=== PATIENT | male | born 1950 | race Caucasian/White ===

== ENCOUNTER 2018-05-30 05:25 | Day surgery (SDC) | payer MEDICARE, OTHER ==
[~2018-05-30 05:25] MED LIST: Acetaminophen 500 MG Tab PO ONE; Bupivacaine 0.5% 50 ML MDV ONE; Dextrose 5%-Lactated Ringers 1,000 ML IV SCH; Lidocaine 1% with EPINEPHrine 1:100,000 50 ML MDV ONE; ceFAZolin 2 GM in Premix Bag 1 BAG IV ONE
[2018-05-30] MEDS ORDERED: Acetaminophen 500 MG Tab PO ONE (06:00)
[2018-05-30] MEDS: Dextrose 5%-Lactated Ringers 1,000 ML IV SCH ×2 (06:32→14:42)
[2018-05-30] MEDS ORDERED: Lidocaine 1% with EPINEPHrine 1:100,000 50 ML MDV ONE (06:43)
[2018-05-30] MEDS ORDERED: Bupivacaine 0.5% 50 ML MDV ONE (06:43)
[2018-05-30] MEDS ORDERED: Bupivacaine 0.5%/EPINEPHrine 1:200,000 50 ML MDV ONE (07:10)
[2018-05-30] MEDS ORDERED: Propofol 200 MG/20 ML SDV ONE ×2 (07:14→10:50)
[2018-05-30] MEDS ORDERED: Neostigmine Methylsulfate 1 MG/ML 5 ML Syringe ONE (07:14)
[2018-05-30] MEDS ORDERED: Dexamethasone 4 MG/ML SDV ONE (07:14)
[2018-05-30] MEDS ORDERED: Rocuronium 50 MG/5 ML Vial ONE (07:14)
[2018-05-30] MEDS ORDERED: Glycopyrrolate 0.2 MG/ML 5 ML MDV ONE (07:14)
[2018-05-30] MEDS ORDERED: Ondansetron 4 MG/2 ML SDV ONE (07:14)
[2018-05-30] MEDS ORDERED: Succinylcholine 200 MG/10 ML MDV ONE (07:14)
[2018-05-30] MEDS ORDERED: fentaNYL 250 MCG/5 ML SDV ONE (07:15)
[2018-05-30] MEDS: ceFAZolin 2 GM in Premix Bag 1 BAG IV ONE ×2 (08:56→12:31)
[2018-05-30] MEDS ORDERED: Ketorolac 60 MG/2 ML SDV ONE (09:18)
[2018-05-30] MEDS ORDERED: Lactated Ringers 1,000 ML ONE (09:44)
[2018-05-30] MEDS ORDERED: fentaNYL 100 MCG/2 ML SDV ONE (09:58)
[2018-05-30] MEDS ORDERED: Ondansetron 4 MG/2 ML SDV IVPUSH PRN (11:56)
[2018-05-30] MEDS ORDERED: Acetaminophen/oxyCODONE 325-5 MG Tab PO PRN (11:57)
[2018-05-30] MEDS: ceFAZolin 2 GM in Premix Bag 1 BAG IV SCH (16:37)
[2018-05-30] MEDS ORDERED: Simvastatin 20 MG Tab PO SCH (21:00)
[2018-05-31] MEDS: ceFAZolin 2 GM in Premix Bag 1 BAG IV SCH (00:07)
[2018-05-31] MEDS ORDERED: Aspirin 81 MG Tab.EC PO SCH (09:00)
--- NOTE | 2018-05-31 16:55 | PCM.DCSUM1 ---
Discharge Summary - Hospital Course Free Text/Narrative:: Admission Diagnosis: Incarcerated inguinal hernia. Discharge Diagnosis: Incarcerated inguinal hernia. Brief History: Admission Diagnosis: Incarcerated inguinal hernia. Procedure: Open repair of incarcerated left inguinal hernia with mesh. Post Op Diagnosis: Incarcerated inguinal hernia. Post Op Day 1: Patient will be discharged today. The patient's pain is well controlled, is urinating, having bowel movements, and tolerating diet. No concerns from the patient or nursing staff. TORIBIO drains will stay in place until follow-up appointment with Tootie Bui PA-C on WednesdayJune 03 at 10:00 AM. Patient will drain these 4 times per day. The patient understands and agrees to plan of care. - Discharge Data Discharge Date: 05/31/18 Discharge Disposition: Home, Self-Care 01 Condition: Good - Patient Summary/Data Consults: Consultations 05/30/18 11:45 Respiratory Care Assess and Treatment [CONS] Routine Comment: Physician Instructions: - Patient Instructions Diet: Usual Diet as Tolerated, Drink 8-10+ Glasses/Day Activity: No Lifting Over 10 Pounds Activity, Other: Walk at least 6 times daily Driving: Do Not Drive Showering/Bathing: May Shower Wound/Incision Care: Keep Operative Site/Wound Site Clean and Dry Notify Provider of: Fever, Increased Pain, Nausea and/or Vomiting Other/Special Instructions: Use incentive inspirometer 10 times every hour while awake for 1 week. - Discharge Plan Prescriptions/Med Rec: Acetaminophen/oxyCODONE [Percocet 325-5 MG] 1 - 2 tab PO Q4H PRN #40 tablet PRN Reason: Pain Home Medications: Home Meds Aspirin [Adult Low Dose Aspirin EC] 81 mg PO DAILY 07/28/13 [History] Multivitamin with Minerals [Multiple Vitamin] 1 tab PO DAILY 07/28/13 [History] Simvastatin 20 mg PO DAILY 07/28/13 [History] Acetaminophen/oxyCODONE [Percocet 325-5 MG] 1 - 2 tab PO Q4H PRN #40 tablet 04/06 [Rx] Referrals: Tootie Bui PA-C [Physician Perfume Maker] - 06/03/18 10:00 am Bonilla Sung MD [Physician] - 06/08/18 8:00 am - Discharge Summary/Plan Comment DC Time >30 min.: Yes - General Info Date of Service: 05/31/18 Admission Dx/Problem (Free Text: Incarcerated inguinal hernia. Functional Status: Reports: Pain Controlled, Tolerating Diet, Ambulating, Urinating, Incentive Spirometry - Patient Data Vitals - Most Recent: Last Vital Signs Temp 37.0 C 05/31/18 07:13 Pulse 87 05/31/18 07:13 Resp 16 05/31/18 07:13 BP 143/81 H 05/31/18 07:13 Pulse Ox 93 L 05/31/18 07:18 Weight - Most Recent: 84.822 kg I&O - Last 24 hours: Intake & Output 05/31/18 05/31/18 05/31/18 06:59 14:59 22:59 Intake Total 750 Output Total 670 65 Balance 80 -65 Med Orders - Current: Current Medications Discontinued Medications Acetaminophen (Tylenol Extra Strength) 1,000 mg PO ONETIME ONE Stop: 05/16/18 07:46 Acetaminophen (Tylenol Extra Strength) 1,000 mg PO ONETIME ONE Stop: 05/26/18 05:46 Acetaminophen (Tylenol Extra Strength) 1,000 mg PO ONETIME ONE Stop: 05/30/18 06:01 Last Admin: 05/30/18 05:49 Dose: 1,000 mg Aspirin (Halfprin) 81 mg PO DAILY MONIE Bupivacaine HCl (Marcaine 0.5%) Confirm Administered Dose 50 ml .ROUTE .STK-MED ONE Stop: 05/16/18 06:43 Bupivacaine HCl (Marcaine 0.5%) Confirm Administered Dose 50 ml .ROUTE .STK-MED ONE Stop: 05/30/18 06:44 Bupivacaine HCl/Epinephrine Bitart (Marcaine 0.5%/Epinephrine 1:200,000) Confirm Administered Dose 50 ml .ROUTE .STK-MED ONE Stop: 05/30/18 07:11 Last Admin: 05/30/18 09:23 Dose: 25 ml Dexamethasone (Dexamethasone) Confirm Administered Dose 4 mg .ROUTE .STK-MED ONE Stop: 05/30/18 07:15 Fentanyl (Sublimaze) Confirm Administered Dose 250 mcg .ROUTE .STK-MED ONE Stop: 05/30/18 07:16 Fentanyl (Sublimaze) Confirm Administered Dose 100 mcg .ROUTE .STK-MED ONE Stop: 05/30/18 09:59 Glycopyrrolate (Robinul) Confirm Administered Dose 1 mg .ROUTE .STK-MED ONE Stop: 05/30/18 07:15 Cefazolin Sodium/Dextrose 2 gm (/ Premix) 50 mls @ 100 mls/hr IV ONETIME ONE Stop: 05/16/18 09:29 Dextrose/Lactated Ringer's (Dextrose 5%-Lactated Ringers) 1,000 mls @ 100 mls/ hr IV ASDIRECTED [facility] Dextrose/Lactated Ringer's (Dextrose 5%-Lactated Ringers) 1,000 mls @ 100 mls/ hr IV ASDIRECTED [facility] Cefazolin Sodium/Dextrose 2 gm (/ Premix) 50 mls @ 100 mls/hr IV ONETIME ONE Stop: 05/26/18 07:44 Dextrose/Lactated Ringer's (Dextrose 5%-Lactated Ringers) 1,000 mls @ 100 mls/ hr IV ASDIRECTED [facility] Last Admin: 05/30/18 14:42 Dose: 100 mls/hr Cefazolin Sodium/Dextrose 2 gm (/ Premix) 50 mls @ 100 mls/hr IV ONETIME ONE Stop: 05/30/18 06:29 Last Admin: 05/30/18 12:31 Dose: Not Given Lactated Ringer's (Ringers, Lactated) Confirm Administered Dose 1,000 mls @ as directed .ROUTE .STK-MED ONE Stop: 05/30/18 09:45 Linezolid (Zyvox) Confirm Administered Dose 300 mls @ as directed .ROUTE .STK- MED ONE Stop: 05/30/18 10:07 Cefazolin Sodium/Dextrose 2 gm (/ Premix) 50 mls @ 100 mls/hr IV Q8H [facility] Stop: 05/31/18 00:29 Last Admin: 05/31/18 00:07 Dose: 100 mls/hr Ketorolac Tromethamine (Toradol) Confirm Administered Dose 60 mg .ROUTE .STK- MED ONE Stop: 05/30/18 09:19 Lidocaine/Epinephrine (Xylocaine 1% With Epinephrine 1:100,000) Confirm Administered Dose 50 ml .ROUTE .STK-MED ONE Stop: 05/16/18 06:43 Lidocaine/Epinephrine (Xylocaine 1% With Epinephrine 1:100,000) Confirm Administered Dose 50 ml .ROUTE .STK-MED ONE Stop: 05/30/18 06:44 Linezolid (Zyvox) 600 mg IRR .STK-MED ONE Stop: 05/30/18 10:10 Last Admin: 05/30/18 10:09 Dose: 600 mg Neostigmine Methylsulfate (Neostigmine) Confirm Administered Dose 5 mg .ROUTE .STK-MED ONE Stop: 05/30/18 07:15 Ondansetron HCl (Zofran) Confirm Administered Dose 4 mg .ROUTE .STK-MED ONE Stop: 05/30/18 07:15 Ondansetron HCl (Zofran) 4 mg IVPUSH Q4H PRN PRN Reason: Nausea Oxycodone/Acetaminophen (Percocet 325-5 Mg) 1 - 2 tab PO Q4H PRN PRN Reason: Pain Last Admin: 05/31/18 05:24 Dose: 1 tab Propofol (Diprivan 20 Ml) Confirm Administered Dose 200 mg .ROUTE .STK-MED ONE Stop: 05/30/18 07:15 Propofol (Diprivan 20 Ml) Confirm Administered Dose 200 mg .ROUTE .STK-MED ONE Stop: 05/30/18 10:51 Rocuronium [place] (Zemuron) Confirm Administered Dose 50 mg .ROUTE .STK-MED ONE Stop: 05/30/18 07:15 Simvastatin (Zocor) 20 mg PO BEDTIME MONIE Simvastatin (Zocor) 20 mg PO BEDTIME MONIE Succinylcholine Chloride (Quelicin) Confirm Administered Dose 200 mg .ROUTE .STK -MED ONE Stop: 05/30/18 07:15 - Exam Physical Findings Comments:: General: No fever, sweats, chills, weight loss or gain. HEENT: Negative. Neck: Supple. Heart: Regular rate and rhythm. Lungs: Clear to auscultation bilaterally. Abdomen: Dressing removed. [place] intact. Expected tenderness with palpation. Abdominal binder with pressure dressing over hernia site is on. Disposition: Discharged to home. Condition: Stable and improving. Follow-Up Appointment to remove TORIBIO drains: Tootie Bui PA-C on June 03 at 10:00 AM. Follow-Up Appointment to remove [place]: Bonilla Sung MD on June 08 at 8:00 AM.
[2018-05-31] MEDS ORDERED: Simvastatin 20 MG Tab PO SCH (21:00)
--- NOTE | 2018-06-07 09:02 | OR ---
DATE OF PROCEDURE: 05/30/2018 PREOPERATIVE DIAGNOSIS: Incarcerated left inguinal hernia. POSTOPERATIVE DIAGNOSES: 1. Incarcerated left inguinal hernia with peritoneal nodule located with hernia sac. 2. Left ilioinguinal and iliohypogastric nerves at risk for scar entrapment. OPERATIVE PROCEDURES: Left inguinal exploration with: 1. Open repair of incarcerated left inguinal hernia with mesh (16875). 2. Excision of peritoneal nodule adherent to hernia sac (15633). 3. Excision of left ilioinguinal nerve (19209). 4. Excision of left iliohypogastric nerve (29774). ANESTHESIA: General. SURGEON: Bonilla Sung MD ASSISTANTS: Tootie Bui PA-C, and FRANCISCO J Humphrey. INDICATION FOR PROCEDURE: This 67-year-old is presenting with a large incarcerated left inguinal hernia. Clinically, this likely contained some non-reducible sigmoid colon. Plan is to proceed with an open repair. With the amount of hernia present within the scrotal area, general anesthetic was felt to be best so as to allow for an adequate reduction without more difficult manipulation of the viscera. Potential risks of the procedure including bleeding, infection, injury to underlying viscera, possible recurrence of the hernia over time, and problems with possibility of the mesh becoming infected were all reviewed. The patient is also aware that often we will divide the ilioinguinal nerve and/or iliohypogastric nerves, if it appears that they are going to be at risk for entrapment by scar in the postoperative period, in order to minimize chances of postoperative neuropathic pain, which would result in some anesthesia of the skin, if that procedure is completed. DETAILS OF PROCEDURE: The patient was taken to the operating room. After general endotracheal anesthesia was induced, the abdomen and groin areas were prepped and draped. A standard left inguinal incision was then made and carried down through the skin and subcutaneous tissue and through the external oblique aponeurosis. Subaponeurotic flaps were then raised superiorly and inferiorly. The hernia sac was then encountered and was noted to be quite large and extending well down into the scrotum. This was eventually dissected out with a combination of blunt and cautery dissection. The hernia sac was noted to not adequately empty of the sigmoid colon, as it was unusually upward, indicating some incarcerated component upward. The hernia sac was then opened. There was an elongated peritoneal nodule attached between the sigmoid colon and hernia sac, which measured around 5.5 to 6 cm. This was excised and sent as a separate specimen. As this was excised, the sigmoid colon at that point was able to be satisfactorily reduced. The portion of hernia sac was removed, and the remainder of hernia sac was then sutured with a pursestring stitch of 3-0 Vicryl stitch. Next, a large mesh-plug was then placed into the defect and fixed to Tito's ligament inferiorly with titanium tacking screws to the underside of the conjoint tendon medially, laterally, and superiorly with horizontal mattress sutures of 0 Vicryl stitch. At that point, the defect appeared to satisfactorily closed. The free edge of the conjoint tendon was then sutured with a running #1 Vicryl stitch to the shelving portion of the inguinal ligament as well, to a point where the internal ring was satisfactorily closed. The flat portion of the mesh-plug system was then fashioned. It was felt that both the ilioinguinal nerve and iliohypogastric nerves would be covered up by that flat portion of the mesh and it would be at risk for entrapment by scars, and both of these were then divided in the midportion of the inguinal floor and then traced out and divided in the far edge of the incision and separately sent as specimen. The flat portion of the mesh-plug system was then placed across the inguinal floor. It was affixed medially to the pubic tubercle with titanium tacking screws and then laterally to the cord structures with a 3-0 Vicryl stitch. The external oblique aponeurosis was then approximated with the cord structures. A Harvey-Rodriguez drain was then placed through stab wound in the area just lateral and slightly inferior to the incision, and taken down into the scrotum, as this was expected to probably accumulate some fluid and/or blood. A 7- [place] Harvey-Rodriguez drain was then positioned in that location. The subcutaneous tissue was then approximated with some 3-0 Vicryl stitch, and the skin with [place]. Drain was affixed with 4-0 Vicryl stitch. The patient was taken to the recovery room in a satisfactory condition. There were no evident complications. Physician acquisitions assistant, Tootie Bui, played an essential role in assisting in this case, helping to position the patient, retract structures as needed, as well as suturing and cutting sutures when indicated. Her presence improved patient safety and decreased the operative time. Bonilla Sung MD /[id number]
== END 2018-05-31 08:59 | disposition home or self-care (01) ==
LOC: JP.SDS 05:25 → JP.MS 11:15 → JP.SDS 05-31 08:59
PROVIDERS: ATTEND Surgery
DX: K40.30 Unilateral inguinal hernia, with obstruction, without gangrene, not specified as recurrent (principal); I25.10 Atherosclerotic heart disease of native coronary artery without angina pectoris; Z79.82 Long term (current) use of aspirin; Z79.899 Other long term (current) drug therapy; Z95.1 Presence of aortocoronary bypass graft
CPT/HCPCS: 36415; 49507; 64772; 80053; 83735; 84100; 85027; 88302; 93005; 93010; 94762; A9270; C1781; J0330; J0690; J1100; J1885; J2020; J2405; J2704; J2710; J3010; J3490; J7042; J7120

== ENCOUNTER 2020-07-01 06:04 | Day surgery (SDC) | payer MEDICARE, OTHER ==
[~2020-07-01 06:04] MED LIST changes: -Acetaminophen 500 MG Tab PO ONE; -Bupivacaine 0.5% 50 ML MDV ONE; -Lidocaine 1% with EPINEPHrine 1:100,000 50 ML MDV ONE; -ceFAZolin 2 GM in Premix Bag 1 BAG IV ONE
[2020-07-01] MEDS ORDERED: Midazolam 1 MG/ML 2 ML SDV ONE (07:01)
[2020-07-01] MEDS ORDERED: fentaNYL 100 MCG/2 ML SDV ONE (07:01)
[2020-07-01] MEDS ORDERED: Propofol 200 MG/20 ML SDV ONE (07:01)
--- NOTE | 2020-07-15 10:03 | OR ---
DATE OF PROCEDURE: 07/01/2020 SURGEON: Bonilla Sung MD PREOPERATIVE DIAGNOSIS: Indications for screening colonoscopy. POSTOPERATIVE DIAGNOSIS: Extensive uncomplicated diverticulosis, otherwise normal examination. OPERATIVE PROCEDURE: Flexible colonoscopy. ANESTHESIA: IV sedation. INDICATION FOR PROCEDURE: A 69-year-old male presenting for a screening colonoscopy. He has no personal or family history of colonic neoplasia. Plan is to proceed with colonoscopy with biopsies and polypectomy as indicated. Potential risks including bleeding and perforation were discussed, and the patient wishes to proceed. DETAILS OF PROCEDURE: The patient was taken to the operating room and placed in a left lateral decubitus position. IV sedation was administered, after which the initial digital rectal exam was performed. It was unremarkable. Colonoscope was then passed to the level of the cecum. Retroflexion in the rectum revealed uncomplicated hemorrhoidal columns. The patient had quite extensive colonic diverticulosis almost through the entire length of the colon but most prominently on the left side. This was not associated with any areas of inflammation or colitis, and otherwise there were no polyps or other signs of neoplasia. Scope was then withdrawn. The above findings reconfirmed. The prep was quite good with only small amount of liquid stool being present, and the patient was taken to the recovery room in satisfactory condition. Recommendation would be to repeat the colonoscopy in 10 years given the lack of personal and family history of colonic neoplasia. Bonilla Sung MD /[id number]
== END 2020-07-01 10:04 | disposition home or self-care (01) ==
LOC: JP.SDS 06:04
PROVIDERS: ATTEND Surgery
DX: Z12.11 Encounter for screening for malignant neoplasm of colon (principal); K57.30 Diverticulosis of large intestine without perforation or abscess without bleeding; K64.9 Unspecified hemorrhoids; I10 Essential (primary) hypertension; I25.10 Atherosclerotic heart disease of native coronary artery without angina pectoris; Z95.1 Presence of aortocoronary bypass graft
CPT/HCPCS: J2250; J2704; J3010; J7121